=== PATIENT | female | born 1945 | race Caucasian/White ===

== ENCOUNTER 2016-09-21 07:13 | Emergency (ER) | payer MEDICARE, BC ==
[2016-09-21 07:26] VITALS: BP 148/78
--- NOTE | 2016-09-21 12:14 | UC ---
Ford Rosado Benjamin, scribed for Hafsa Stewart MD on 09/21/16 at 0749 . General HPI - HPI Summary HPI Summary: 71yo female c/o intermittent left jaw twinges and aching pain for couple of days. Pt reports having jaw pain again last night and that now the pain has become constant. Unclear if pain worse with position or movement. Able to chew. But everything painful, jose a post jaw L. Pt has international trip planned next week, leaves Saturday. Family dentistry at [place]. PMHx of arthritis. Pt takes tylenol for her joint pain. Pt takes lorazepam for sleep. - History of Current Complaint Chief Complaint: UCGeneralIllness Stated Complaint: JAW PAIN Hx Obtained From: Patient Onset/Duration: Gradual Onset, Lasting Days, Still Present Timing: Constant - was intermittent but became constant since last night Onset Severity: Mild Current Severity: Mild Associated Signs & Symptoms: Negative: Chest Pain - Allergy/Home Medications Allergies/Adverse Reactions: Allergies Allergy/AdvReac Type Severity Reaction Status Date / Time No Known Allergies Allergy Verified 09/21/16 07:19 Home Medications: Home Medications Acetaminophen TAB* [Tylenol TAB*] 1 tab PO PRN 09/21/16 [History] diPHENhydraMINE PO* [Benadryl PO 25 MG TAB*] 1 tab PO 09/21/16 [History] PMH/Surg Hx/FS Hx/Imm Hx - Additional Past Medical History Additional PMH: Scoliosis Previously Healthy: Yes - see hpi. + arthritis Cardiovascular History: Hypertension - Surgical History Surgical History: Yes Surgery Procedure, Year, and Place: Lumpectomy right breast, benign - Family History Known Family History: Positive: Cardiac Disease, Renal Disease Negative: Hypertension, Diabetes - Social History Occupation: Retired Lives: With Family Alcohol Use: Occasionally Substance Use Type: None Substance Use Comment - Amount & Last Used: PRESCRIBED LORAZEPAM Smoking Status (MU): Former Smoker Amount Used/How Often: 1 PPD Have You Smoked in the Last Year: No When Did the Patient Quit Smoking/Using Tobacco: 40+ YEARS AGO - Immunization History Most Recent Influenza Vaccination: 2016 Most Recent Pneumonia Vaccination: 2012 Review of Systems Constitutional: Negative Skin: Negative Eyes: Negative ENT: Other - see hpi Respiratory: Negative Cardiovascular: Negative Gastrointestinal: Negative Genitourinary: Negative Motor: Negative Neurovascular: Negative Musculoskeletal: Arthralgia - left jaw pain Neurological: Negative Psychological: Negative All Other Systems Reviewed And Are Negative: Yes Physical Exam Triage Information Reviewed: Yes Appearance: Well-Nourished Vital Signs: Initial Vital Signs Temp 98.3 F 09/21/16 07:21 Pulse 65 09/21/16 07:21 Resp 16 09/21/16 07:21 BP 148/78 09/21/16 07:21 Pulse Ox 100 09/21/16 07:21 Vital Signs Reviewed: Yes Eye Exam: Normal ENT: Positive: TMs normal, Other: - Tender post L TMJ. No adenopathy appreciated. Tender inside mouth at TMJ. There are dental restorations, but no obvious swelling or problems. Able to bite down, opening mouth seems a little tender.. Negative: TM bulging, TM dull Dental Exam: Other - see above Neck: Positive: Supple, No Lymphadenopathy Respiratory Exam: Normal - no dyspnea, no tachypnea Respiratory: Positive: Normal breath sounds, No respiratory distress Cardiovascular: Positive: RRR, Pulses Normal, Brisk Capillary Refill Abdomen Description: Positive: Nontender, No Organomegaly, Soft Bowel Sounds: Positive: Present Musculoskeletal Exam: Normal Neurological Exam: Normal Psychological: Positive: Age Appropriate Behavior Skin Exam: Normal Skin: Negative: rashes Course/Dx - Course Course Of Treatment: Reviewed pt's medications list and allergies. high blood pressure noted (rx for bp per pcp). Reviewed sx with pt. C/w TMJ, d/w pt. Recommend f/u dentist, she will call today to see if appt available prior to departure next week. Rx T#3 (d/w pt), will cont nsaids (arthritis). Advised pt to call her dentist to try to schedule appointment for today if possible. ISTOP reference number: [id number] Rx T# 13 (#16) D/w pt. Pt requests lyme serology, just dx'd, as such she is concerned about herself as well. F/ u PCP upon return home from her trip. - Differential Dx - Multi-Symptom Provider Diagnoses: TMJ Discharge - Discharge Plan Condition: Stable Disposition: OTHER Discharge Disposition Comment: home stable Prescriptions: Acetaminop/Codeine 30 MG TAB* [Tylenol/Codeine 30 MG TAB*] 1 tab PO Q6H PRN #16 tab MDD 4 PRN Reason: Pain Patient Education Materials: Temporomandibular Disorder (ED) Referrals: Mayte Chauhan MD [Primary Care Provider] - Additional Instructions: Please follow up with your primary care provider in 1-2 weeks. Seek medical attention for worse or new problems in the meantime. Call your dentist today to schedule appointment for today if possible. Continue anti-inflammatory medication (naproxen) as previously prescribed by your doctor as needed for pain. Warm compress (not hot) can help, jose a at night for 15-20 minutes. The documentation as recorded by the Ford silva Benjamin accurately reflects the service I personally performed and the decisions made by me, Hafsa Stewart MD.
== END 2016-09-21 08:23 ==
LOC: UCEAST 07:13
DX: M26.609 Unspecified temporomandibular joint disorder, unspecified side (principal); I10 Essential (primary) hypertension; Z87.891 Personal history of nicotine dependence
CPT/HCPCS: 86618; 99212; G0463

== ENCOUNTER 2017-07-31 08:21 | Day surgery (SDC) | payer MEDICARE, BC ==
[~2017-07-31 08:21] MED LIST: Acetaminophen TAB* 325 MG PO PRN; Buffered Lidocaine 0.9% SYRIN* 5 ML/SYR SYRINGE INTRADERM ONE
[2017-07-31] MEDS ORDERED: Midazolam* 1 MG/ML 2 ML VIAL (2 MG) ONE (10:44)
[2017-07-31 11:16] VITALS: BP 117/67
--- NOTE | 2017-07-31 12:14 | OP ---
DATE OF OPERATION: 07/31/2017. DATE OF : 1945. SURGEON: Jaspreet Marinelli M.D. PREOPERATIVE DIAGNOSIS: Cataract left eye. POSTOPERATIVE DIAGNOSIS: Cataract left eye. OPERATIVE PROCEDURE: Extracapsular cataract extraction with intraocular lens implant left eye. PROCEDURE: The patient was brought to the operating room after being given 1/2% Alcaine with epineph rine drops in the preoperative area. The eye was prepped and draped in the usual sterile fashion. S terile drape and eyelid speculum were placed. Again, topical 1/2% Alcaine with epinephrine was given . A paracentesis incision was made at the 3 o'clock position with the No.75 blade. Clear cornea inc ision 2.2 x 2.2-mm was created at the 6 o'clock position starting at the anterior limbus using the 2. 2-mm keratome. The anterior chamber was irrigated with 0.4 mL of 1% non-preservative intracameral li docaine and filled with DisCoVisc. A capsulorrhexis was completed using the cystotome and the Utrata forceps. Hydrodissection was performed with balanced salt solution. The lens nucleus was removed wi th the Phacoemulsification handpiece without incident. Cortex was removed with the irrigation-aspira tion handpiece. The capsular bag was re-inflated using DisCoVisc and an [id number] implant was insert ed with the shooter. The irrigation-aspiration handpiece was used to remove all residual DisCoVisc. The eye was refilled with balanced salt solution and the wound checked and found to be watertight. Topical Maxitrol drops were given. [id number]/[facility] #: [id number]
== END 2017-07-31 11:26 | disposition home or self-care (01) ==
LOC: OREAST 08:21
PROVIDERS: ATTEND Specialist
DX: H25.812 Combined forms of age-related cataract, left eye (principal); Z87.891 Personal history of nicotine dependence; I10 Essential (primary) hypertension; M19.90 Unspecified osteoarthritis, unspecified site; F41.9 Anxiety disorder, unspecified
CPT/HCPCS: J2250; V2632

== ENCOUNTER 2017-08-14 06:29 | Day surgery (SDC) | payer MEDICARE, BC ==
[2017-08-14] MEDS ORDERED: Midazolam* 1 MG/ML 2 ML VIAL (2 MG) ONE (07:54)
[2017-08-14] MEDS ORDERED: fentaNYL* 50 MCG/ML 2 ML VIAL (100 MCG VIAL) ONE (07:55)
[2017-08-14 09:00] VITALS: BP 95/60
--- NOTE | 2017-08-14 10:06 | OP ---
DATE OF OPERATION: 08/14/2017. DATE OF : 1945. SURGEON: Jaspreet Marinelli M.D. PREOPERATIVE DIAGNOSIS: Cataract right eye. POSTOPERATIVE DIAGNOSIS: Cataract right eye. OPERATIVE PROCEDURE: Extracapsular cataract extraction with intraocular lens implant right eye. PROCEDURE: The patient was brought to the operating room after being given 1/2% Alcaine with epineph rine drops in the preoperative area. The eye was prepped and draped in the usual sterile fashion. S terile drape and eyelid speculum were placed. Again, topical 1/2% Alcaine with epinephrine was given . A paracentesis incision was made at the 9 o'clock position with the No.75 blade. Clear cornea inc ision 2.2 x 2.2-mm was created at the 6 o'clock position starting at the anterior limbus using the 2. 2-mm keratome. The anterior chamber was irrigated with 0.4 mL of 1% non-preservative intracameral li docaine and filled with DisCoVisc. A capsulorrhexis was completed using the cystotome and the Utrata forceps. Hydrodissection was performed with balanced salt solution. The lens nucleus was removed wi th the Phacoemulsification handpiece without incident. Cortex was removed with the irrigation-aspira tion handpiece. The capsular bag was re-inflated using DisCoVisc and an [id number] 20 implant was insert ed with the shooter. The irrigation-aspiration handpiece was used to remove all residual DisCoVisc. The eye was refilled with balanced salt solution and the wound checked and found to be watertight. Topical Maxitrol drops were given. [id number]/[facility] #: [id number]
[2017-08-14] MEDS ORDERED: Neomycin/Polymy/Dex OPTH.SUSP* MAXITROL 0.1% 5 ML ONE (13:46)
[2017-08-14] MEDS ORDERED: acetaZOLAMIDE TAB* 250 MG ONE (13:46)
[2017-08-14] MEDS ORDERED: Lidocaine 2% EPI 1:200000 MPF*10-20 ML VIAL ONE (13:46)
[2017-08-14] MEDS ORDERED: Proparacaine 0.5% OPHTH.SOL* 15 ML BTL ONE (13:46)
[2017-08-14] MEDS ORDERED: Phenylephrine 2.5% OPTH.SOL* 2 ML BTL ONE (13:46)
[2017-08-14] MEDS ORDERED: Povidone Iodine 5% OPTH* 30 ML BTL ONE (13:46)
[2017-08-14] MEDS ORDERED: Lidocaine 1%* 5 ML VIAL ONE (13:46)
[2017-08-14] MEDS ORDERED: Ketorolac 0.5% OPHTH (NF) 0.5 % 5 ML BTL ONE (13:46)
[2017-08-14] MEDS ORDERED: Cyclopentolate 1% OPTH.SOL* 2 ML BTL ONE (13:46)
== END 2017-08-14 08:59 | disposition home or self-care (01) ==
LOC: OREAST 06:29
PROVIDERS: ATTEND Specialist
DX: H25.811 Combined forms of age-related cataract, right eye (principal); Z87.891 Personal history of nicotine dependence; I10 Essential (primary) hypertension; E78.5 Hyperlipidemia, unspecified; M19.90 Unspecified osteoarthritis, unspecified site
CPT/HCPCS: A9270-GY; J2250; J3010; V2632

== ENCOUNTER 2018-11-29 13:11 | Emergency (ER) | payer MEDICARE, BC ==
[2018-11-29 13:25] VITALS: BP 185/97
[2018-11-29] MEDS ORDERED: Ibuprofen TAB* 600 MG PO ONE (13:40)
--- NOTE | 2018-11-29 13:40 | UC ---
Lower Extremity/Ankle HPI - HPI Summary HPI Summary: Amador a pop today in her R knee after going up the stairs. Feels painful and sore and unable to bear weight. - History of Current Complaint Chief Complaint: UCLowerExtremity Stated Complaint: KNEE INJURY Time Seen by Provider: 11/29/18 13:20 Hx Obtained From: Patient Hx Last Menstrual Period: post menopause Pain Intensity: 8 Pain Scale Used: 0-10 Numeric Aggravating Factor(s): Standing, Ambulation Alleviating Factor(s): Rest Able to Bear Weight: No - Allergies/Home Medications Allergies/Adverse Reactions: Allergies Allergy/AdvReac Type Severity Reaction Status Date / Time No Known Allergies Allergy Verified 08/14/17 06:47 PMH/Surg Hx/FS Hx/Imm Hx - Additional Past Medical History Additional PMH: Only takes her statin. Previously Healthy: Yes Cardiovascular History: Cardiac Disease - Surgical History Surgical History: Yes Surgery Procedure, Year, and Place: Lumpectomy right breast, benign - Family History Known Family History: Positive: Cardiac Disease, Renal Disease Negative: Hypertension, Diabetes - Social History Alcohol Use: Occasionally Alcohol Amount: 3-4 PER WEEK Substance Use Type: None Substance Use Comment - Amount & Last Used: PRESCRIBED LORAZEPAM Smoking Status (MU): Former Smoker Amount Used/How Often: 1 PPD Have You Smoked in the Last Year: No When Did the Patient Quit Smoking/Using Tobacco: 40+ YEARS AGO - Immunization History Most Recent Influenza Vaccination: 2016 Most Recent Pneumonia Vaccination: 2012 Review of Systems All Other Systems Reviewed And Are Negative: Yes Constitutional: Negative: Fever, Chills, Fatigue Skin: Negative: Bruising Motor: Negative: Weakness Neurovascular: Negative: Decreased Sensation, Decreased Pulses Musculoskeletal: Positive: Arthralgia - R knee, Decreased ROM Neurological: Negative: Paresthesia, Numbness Physical Exam Triage Information Reviewed: Yes Appearance: Pain Distress Vital Signs: Initial Vital Signs Temp 98.2 F 11/29/18 13:19 Pulse 72 11/29/18 13:19 Resp 16 11/29/18 13:19 BP 185/97 11/29/18 13:19 Pulse Ox 100 11/29/18 13:19 Vital Signs Reviewed: Yes Respiratory: Positive: No respiratory distress Musculoskeletal: Positive: ROM Limited @ - R knee, Edema @ - at R MCL area Lower Extremity Course/Dx - Course Course Of Treatment: Sudden R knee pain and pt heard a 'pop. uNABLE to bear weight. SUSPECTED R MCL injury based on exam. No MRI on site but pain is significant and XRAY is neg. NO vascular compromise or changes. NO hx of osteoporosis. Will tx w/ nsaids, knee imobilizer and strongly encouraged pt to f/u w/ ortho w/in the next few days. Also gave crutches and reviewed risk of falls. - Differential Dx/Diagnosis Differential Diagnosis/HQI/PQRI: Bursitis, Contusion, Dislocation, Fracture ( Closed), Sprain, Strain, Tendonitis, Tenosynovitis Provider Diagnosis: Right knee pain Discharge ED - Sign-Out/Discharge Documenting (check all that apply): Patient Departure All imaging exams completed and their final reports reviewed: Yes - Discharge Plan Condition: Good Disposition: HOME Prescriptions: Ibuprofen [Ibu] 600 mg PO TID #90 tablet Patient Education Materials: Knee Immobilizer (ED) Referrals: Yeni Butler MD [Medical Doctor] - 3 Days (Sudden R knee pain w/ inability to bear weight.) Additional Instructions: I suspect your blood pressure is elevated due to pain but you should monitor it with your primary care physician. - Billing Disposition and Condition Condition: GOOD Disposition: Home
== END 2018-11-29 15:15 | disposition home or self-care (01) ==
LOC: UCEAST 13:11
DX: M25.561 Pain in right knee (principal); Z87.891 Personal history of nicotine dependence; X50.9XXA Other and unspecified overexertion or strenuous movements or postures, initial encounter; Y93.89 Activity, other specified; Y92.9 Unspecified place or not applicable
CPT/HCPCS: 99213; A9270-GY; G0463

== ENCOUNTER 2018-12-24 09:01 | Day surgery (SDC) | payer MEDICARE, BC ==
[~2018-12-24 09:01] MED LIST changes: -Acetaminophen TAB* 325 MG PO PRN; -Buffered Lidocaine 0.9% SYRIN* 5 ML/SYR SYRINGE INTRADERM ONE; +Buffered Lidocaine 1% SYRIN* 1 ML/SYRINGE INTRADERM ONE; +Lactated Ringers 1000 ML Bag* 1,000 ML IV SCH
[2018-12-24] MEDS ORDERED: ceFAZolin 2 GM in NS PREMIX(*) 2 GM/100 ML BAG IVPB ONE (10:06)
[2018-12-24] MEDS ORDERED: Lidocaine 2% PF * 5 ML VIAL ONE (10:41)
[2018-12-24] MEDS ORDERED: fentaNYL* 50 MCG/ML 2 ML VIAL (100 MCG VIAL) ONE ×2 (10:42→13:09)
[2018-12-24] MEDS ORDERED: Midazolam* 1 MG/ML 2 ML VIAL (2 MG) ONE (10:42)
[2018-12-24] MEDS ORDERED: Bupivacaine 0.5%* 50 ML MDV VIAL ONE (11:42)
[2018-12-24] MEDS ORDERED: EPINEPHRINE 1 MG/ML 1 ML VIAL ONE (11:42)
[2018-12-24] MEDS ORDERED: Lidocaine 1% w EPI 1:100,000* MDV 20 ML VIAL ONE (11:42)
[2018-12-24] MEDS ORDERED: Ondansetron INJ* 2 MG/ML VIAL ONE (12:17)
[2018-12-24] MEDS ORDERED: Ketorolac INJ* 30 MG/ML 1 ML VIAL ONE (12:17)
[2018-12-24] MEDS ORDERED: Dexamethasone IV* 4 MG/ML 1 ML (4 MG) ONE (12:17)
[2018-12-24] MEDS ORDERED: Metoclopramide IV* 5 MG/ML 2 ML VIAL ONE (12:17)
[2018-12-24] MEDS ORDERED: EPHEDrine (Pressors)* 50 MG/ML VIAL ONE (12:29)
[2018-12-24] MEDS ORDERED: Acetaminophen TAB* 325 MG PO PRN (12:40)
[2018-12-24] MEDS ORDERED: DiMENhydriNATE IV* 50 MG/ML VIAL IV PUSH PRN (12:40)
[2018-12-24] MEDS ORDERED: oxyCODONE TAB* 5 MG TAB PO PRN (12:40)
[2018-12-24] MEDS ORDERED: Naloxone* 0.4 MG/ML 1 ML VIAL IV PRN (12:40)
[2018-12-24] MEDS ORDERED: Labetalol IV* 5 MG/ML 20 ML VIAL ONE (12:42)
[2018-12-24] MEDS ORDERED: oxyCODONE TAB* 5 MG TAB ONE (13:09)
[2018-12-24] MEDS: fentaNYL* 50 MCG/ML 2 ML VIAL (100 MCG VIAL) IV PRN ×4 (13:11→13:59)
[2018-12-24 15:22] VITALS: BP 114/62
--- NOTE | 2018-12-24 21:49 | OP ---
DATE OF OPERATION: 12/24/18 - [facility] DATE OF : [birth year] SURGEON: Amaury Buckner MD NATURAL RESOURCE MANAGER: BLAIR Long. A physician malt specifications control assistant was required for the length of the procedure for assistance with patient positioning, instrumentation , knee manipulation and closure. ANESTHESIOLOGIST: Dr. Kallie Hood. ANESTHESIA: General anesthesia, local anesthesia using 15 cc of local anesthetic, mixture of 1:1 ratio of lidocaine 1% with epinephrine and Marcaine 0.5% without epinephrine. PRE-OP DIAGNOSIS: Right knee medial meniscus tear. POST-OP DIAGNOSIS: Right knee medial meniscus tear. OPERATIVE PROCEDURE: Right knee arthroscopic partial medial meniscectomy. ANTIBIOTICS: Ancef 2 g IV. IV FLUIDS: See Anesthesia note. [id number] TIME: 16 minutes. TOURNIQUET TIME: 19 minutes, right thigh tourniquet, 300 mmHg. SPECIMEN: None. IMPLANTS: None. ESTIMATED BLOOD LOSS: Minimal. COMPLICATIONS: None. INDICATIONS FOR PROCEDURE: The patient is a 73-year-old woman, who injured herself on 11/29/18, who developed immediate pain posteromedial right knee. She responded insufficiently to nonoperative management first by a partner of [facility], and then the patient was referred to me for surgical consultation. I reviewed the patient's MRI imaging as well as her exam. I acknowledged that the patient does have some arthritis in that right knee, which makes results of surgery less predictable. Discussed risks and potential complications of surgery and the patient decided to move forward. DESCRIPTION OF PROCEDURE: In preoperative holding, the patient signed a written consent. The operative extremity was marked in preoperative holding. The patient was taken back to the operating room and placed supine on the operating room table. Sedated and intubated. Tourniquet placed about the right proximal thigh. Right distal thigh placed in a circumferential thigh young. Table elevated and foot of the table dropped. A blanket bump had been placed under the right hemipelvis. The right lower extremity was prepped and draped. Surgical time-out performed. Esmarch applied and tourniquet elevated. Anterolateral knee arthroscopy portal was established using standard technique. Commenced diagnostic arthroscopy. The patient had grade 1 articular cartilage wear on the superior aspect of the undersurface of the patella as well as in the trochlear groove. I moved to the medial compartment. The patient had a grade 1 to 2 injury diffusely about the medial femoral condyle and grade 1 about the medial tibial plateau. Identified clear medial meniscus tear. I established anteromedial portal under direct visualization. I entered and probed the junction of the posterior horn and body of the medial meniscus. There was a flap on the undersurface of the meniscus in that location that was displaced inferiorly under the remainder of the meniscus and I was able to bring out into the center of the medial compartment for an image. I debrided medial meniscus back to a stable rim of tissue working through the medial portal with meniscal biters and an arthroscopic shaver. Confirmed no additional fragment or unstable tear about the posterior aspect of that meniscus. I moved to the intercondylar notch. ACL and PCL visualized. A small amount of bursitic tissue or synovitic tissue anteriorly was debrided. I moved to the lateral compartment. No significant articular cartilage injury nor any lateral meniscus tear. Returned to the medial compartment. I worked through both anteromedial and anterolateral portals to debride the meniscus back to a stable rim. The tear of the meniscus had been complex in shape and had been most significantly towards the periphery near the junction of the posterior horn and body. I removed instruments and fluid from the knee. Closed the skin incisions with [id number] stitches using nylon 3-0 suture. Local anesthesia injected. Xeroform, 4x4s, ABDs, sterile Webril, Royal bandage from foot to proximal groin. Cooling unit. The patient was awakened, extubated, and transferred to the PACU. DISPOSITION: The patient was discharged home. Wound care instructions. The patient will take aspirin for DVT prophylaxis and [place] as needed for pain control. The patient will see me in clinic in 10 to 14 days postoperatively. She will start physical therapy immediately. Weightbearing as tolerated. She will wean off her crutches in the next few days. [id number]/[facility] #: [id number] [facility]IC[facility]ie
== END 2018-12-24 15:24 | disposition home or self-care (01) ==
LOC: OR 09:01
PROVIDERS: ATTEND Orthopaedic Surgery
DX: S83.241A Other tear of medial meniscus, current injury, right knee, initial encounter (principal); X50.0XXA Overexertion from strenuous movement or load, initial encounter; Y92.9 Unspecified place or not applicable; I10 Essential (primary) hypertension; E78.00 Pure hypercholesterolemia, unspecified; M19.90 Unspecified osteoarthritis, unspecified site; F41.9 Anxiety disorder, unspecified; Z87.891 Personal history of nicotine dependence
CPT/HCPCS: A9270-GY; J0690; J1100; J1885; J2250; J2405; J2765; J3010; J3490

== ENCOUNTER 2024-01-06 05:38 | Observation (INO) ==
[~2024-01-06 05:38] MED LIST changes: -Buffered Lidocaine 1% SYRIN* 1 ML/SYRINGE INTRADERM ONE; -Lactated Ringers 1000 ML Bag* 1,000 ML IV SCH; +Lidocaine 1% w EPI 1:100,000 MDV 20 ML VIAL ONE; +Naloxone 0.4 mg VIAL 0.4 mg/ml 1 ml VIAL IV PRN
[2024-01-06] MEDS ORDERED: Tranexamic Acid 1 GM/100ML BAG 2,000 MG/200 ML BAG IV ONE (06:11)
[2024-01-06] MEDS ORDERED: ceFAZolin 2 GM PREMIX 2 GM/50 ML BAG ONE (06:11)
[2024-01-06 06:34] LABS: Rapid COVID-19 Molecular Undetected (Undetected)
[2024-01-06] MEDS: Lactated Ringers 1000 ml BAG 1,000 ML IV SCH ×2 (06:56→13:28)
[2024-01-06 06:58] LABS: Activated Partial Thrombo Time 33.3 seconds (26.0-38.0); INR 0.98 (0.85-1.14)
[2024-01-06] MEDS ORDERED: Rocuronium 50 mg VIAL 10 mg/ml 5 ml VIAL (50 mg) ONE (07:26)
[2024-01-06] MEDS ORDERED: fentaNYL 250 mcg/5 ml 50 MCG/ML 5 ml VIAL (250 MCG) ONE (07:26)
[2024-01-06] MEDS ORDERED: Lidocaine 2% PF 5 ML VIAL ONE (07:26)
[2024-01-06] MEDS ORDERED: Midazolam 2 mg/2 ml VIAL 1 mg/ml 2 ml VIAL (2 mg) ONE (07:31)
[2024-01-06] MEDS ORDERED: Vancomycin 1,000 MG VIAL ONE (07:33)
[2024-01-06] MEDS ORDERED: ROPIVACAINE 5 MG/ML 30 ML BTL (0.5%) ONE (07:34)
[2024-01-06] MEDS ORDERED: HYDROmorphone 0.5 MG/0.5 ML SYRINGE IV SLOW PU PRN (08:00)
[2024-01-06] MEDS ORDERED: Dexamethasone IV 4 MG/ML VIAL 1 ml VIAL ONE (08:10)
[2024-01-06] MEDS ORDERED: Ondansetron 4 mg VIAL 2 MG/ML 2 ml VIAL ONE (08:10)
[2024-01-06] MEDS ORDERED: HYDROmorphone 0.5 MG/0.5 ML SYRINGE ONE (09:25)
[2024-01-06] MEDS ORDERED: Acetaminophen IV 1 GM/100ML 1,000 MG/100 ML BAG IV ONE (09:26)
[2024-01-06] MEDS ORDERED: Calcium Carb (TUMS) 500 mg CHEW TAB PO PRN (11:18)
[2024-01-06] MEDS ORDERED: Magnesium Hydroxide LIQ 30 ML UDC PO PRN (11:18)
[2024-01-06] MEDS ORDERED: Ondansetron 4 mg VIAL 2 MG/ML 2 ml VIAL IV PRN (11:18)
[2024-01-06] MEDS ORDERED: Lactulose 30 ml UDC PO PRN (11:18)
[2024-01-06] MEDS: Buffered Lidocaine 1% SYRIN 1 ml INTRADERM ONE (13:00)
[2024-01-06] MEDS: ceFAZolin 2 GM PREMIX 2 GM/50 ML BAG IV SCH (15:57)
[2024-01-06] MEDS: PROPYLENE GLYCOL 0.6% BOTH EYES SCH (16:00)
[2024-01-06] MEDS: Magnesium Hydroxide LIQ 30 ML UDC PO SCH (22:01)
[2024-01-07] MEDS: Ondansetron ODT 4 mg TAB 4 MG TAB PO PRN (01:43)
[2024-01-07] MEDS: Morphine 2 MG/ML SYRINGE IV PRN (02:08)
[2024-01-07 06:19] LABS: Hematocrit 29.3 % (35-45); Hemoglobin 10.1 g/dL (11.5-14.3); Mean Platelet Volume 9.4 fL (7.5-11.2); Platelet Count 200 10^3/uL (150-450)
[2024-01-07 06:37] LABS: Calcium 8.3 mg/dL (8.6-10.3); Creatinine, Serum 0.58 mg/dL (0.51-0.95); Potassium 3.5 mmol/L (3.5-5.0); eGFR CKD-EPI 93.1 (>60)
[2024-01-07] MEDS: Vitamin THERAPEUTIC TAB PO SCH (08:30)
[2024-01-07] MEDS: DULoxetine DR 20 mg CAP PO SCH (08:30)
[2024-01-07] MEDS: Aspirin EC 81 mg TAB.EC (enteric coated) PO SCH (08:39)
[2024-01-07 10:11] VITALS: BP 114/59
== END 2024-01-07 13:35 | disposition home or self-care (01) ==
LOC: SSU 05:38 → OR 05:38
PROVIDERS: ADMIT Orthopaedic Surgery; ATTEND Orthopaedic Surgery